=== PATIENT | male | born 1990 | race Caucasian/White ===

== ENCOUNTER 2022-01-21 19:18 | Emergency (ER) | payer OTHER, SELFPAY ==
[2022-01-21 19:31] VITALS: BP 151/98; PULSE 60; RESP 16; TEMP 37; O2SAT 100; BMI 30.7
--- NOTE | 2022-01-21 19:39 | DI.RAD.S_ITS ---
PROCEDURE: XR CHEST 1V INDICATIONS: chest pain TECHNIQUE: One view of the chest was acquired. COMPARISON: None. FINDINGS: Surgical changes and devices: None. Lungs and pleura: Lungs are clear. No pleural effusions or pneumothorax. Mediastinum: Mediastinal contours appear normal. Heart size is normal. Bones and chest wall: No suspicious bony lesions. Overlying soft tissues appear unremarkable. IMPRESSION: 1. No acute cardiopulmonary disease. Dictated by: Gerardo Aleman M.D. on 01/21/2022 at 21:38 Approved by: Gerardo Aleman M.D. on 01/21/2022 at 21:39
--- NOTE | 2022-01-21 20:20 | PC.NURSE ---
Report received - assumed care of pt at this time
[2022-01-21 20:24] LABS: Alanine Aminotransferase 29 IU/L (<50); Albumin 4.7 g/dL (3.5-5.0); Albumin Globulin Ratio 1.5 (1.0-2.8); Alkaline Phosphatase 70 U/L (38-126); Aspartate Aminotransferase 28 IU/L (17-59); BUN Creatinine Ratio 7.4 (6-22); Bilirubin Total 0.8 mg/dL (0.2-1.3); Blood Urea Nitrogen 9 mg/dL (9-20); Calcium 9.3 mg/dL (8.4-10.2); Carbon Dioxide 28 mmol/L (22-32); Chloride 99 mmol/L (98-107); Creatine Kinase 235 U/L (55-170); Estimated Glomerular Filt Rate > 60 mL/min (>60); Globulin 3.1 g/dL (1.7-4.1); Glucose 108 mg/dL (70-100); HEMOLYSIS < 15 (0-50); Lipase 130 U/L (23-300); Sodium 139 mmol/L (137-145); Total Protein 7.8 g/dL (6.3-8.2)
--- NOTE | 2022-01-21 20:25 | PC.NURSE ---
pt returned to waiting room - care relinquished
[2022-01-21 20:35] LABS: Troponin I < 0.012 ng/mL (0.01-0.034)
[2022-01-21 20:39] LABS: CKMB % Relative Index 0.3 % (1.5-5.0)
[2022-01-21 20:50] LABS: Add Manual Diff / Slide Review NO; Basophils Absolute Auto 100 /uL (0-100); Basophils Percent Auto 1.1 % (0-2); Eosinophils Absolute Auto 200 /uL (0-450); Eosinophils Percent Auto 4.2 % (2-4); Hematocrit 44.5 % (41-53); Hemoglobin 15.4 g/dL (13.5-17.5); Lymphocytes Absolute Auto 2500 /uL (1100-4500); Lymphocytes Percent Auto 43.8 % (25-40); Mean Corpuscular HGB Conc 34.6 % (30-36); Mean Corpuscular Hemoglobin 28.6 PG (26-34); Mean Corpuscular Volume 82.8 fL (80-100); Monocytes Absolute Auto 500 /uL (0-900); Monocytes Percent Auto 8.7 % (3-14); Neutrophils Absolute Auto 2500 /uL (1500-7000); Neutrophils Percent Auto 42.2 % (50-75); Platelet Count 266 X10^3/uL (150-400); Red Blood Cell Count 5.37 X10^6/uL (4.5-5.9); Red Cell Distribution Width 13.7 % (11.6-14.8); White Blood Cell Count 5.8 X10^3/uL (4.5-11.0)
--- NOTE | 2022-01-21 21:08 | ED.NEUROSD ---
HPI - Neuro Symptoms/Deficit General Chief Complaint: Neuro Symptoms/Deficit Stated Complaint: Left arm numb earlier, Numbness in head Time Seen by Provider: 01/21/22 20:52 Source: patient Mode of arrival: Ambulatory History of Present Illness HPI Narrative: Patient is a 31-year-old male with out any pertinent past medical history presenting today with dizziness left arm and face numbness. He said he was sitting at work without any stress it suddenly he felt dizzy with some left arm numbness. It lasted for about a minute he is able to finish his work shift for 4 hours without any recurrence. Full driving home he developed some left-sided facial numbness along with some chest discomfort. was with him did not notice any facial droop or difficulty speaking. He had no recurrence of left arm numbness. He has no family history of CVA or CAD. His symptoms have been completely resolved since he is in the emergency department. On Anticoagulants: No Related Data Allergies Allergy/AdvReac Type Severity Reaction Status Date / Time No Known Drug Allergies Allergy Verified 01/21/22 19:31 Review of Systems Review of Systems Narrative: GENERAL: Denies chills, fatigue, malaise, fever, sweats, travel HEENT: Denies sinus pain, ear pain, sore throat, difficulty swallowing, neck pain RESPIRATORY: Denies dyspnea, cough, wheezing, hemoptysis, sputum. CARDIOVASCULAR: Denies chest pain, palpitations, orthopnea, edema GASTROINTESTINAL: Denies nausea, vomiting, abdominal pain, diarrhea, constipation, melena. : Denies dysuria, frequency, incontinence, hematuria, urinary retention, flank pain. MUSCULOSKELETAL: Denies weakness, joint pain, or bony pain SKIN: No rash, no erythema, no pruritus NEUROLOGIC: See HPI PSYCHIATRIC: No concerning psychosocial issues. 12 point review of systems is negative except for those stated above and HPI Hematologic/Lymphatic On Anticoagulants: No Patient History Social History Smoking Status: Never smoker Smoking Status: Never smoker alcohol intake frequency: holidays/special occasions only Substance Use Type: does not use Exam Initial Vital Signs Initial Vital Signs: Vital Signs Temperature 98.6 F 01/21/22 19:31 Pulse Rate 60 01/21/22 19:31 Respiratory Rate 16 01/21/22 19:31 Blood Pressure 151/98 H 01/21/22 19:31 Pulse Oximetry 100 01/21/22 19:31 Oxygen Delivery Method 01/21/22 19:31 GENERAL: Alert pleasant. Year old male and in no acute distress. HEENT: Head atraumatic,EOMI, pupils reactive, face symmetric, moist mucous membranes CARDIOVASCULAR: Regular rate and rhythm without murmurs, rubs or gallops. RESPIRATORY: Breath sounds equal bilaterally, no wheezes rales or rhonchi. ABDOMEN: Soft, nontender. Normoactive bowel sounds all 4 quadrants. No guarding or rebound. EXTREMITIES: Normal range of motion, no clubbing or edema. Neurovascularly intact NEUROLOGICAL: Alert and oriented x4.Normal gait and speech. Cranial nerves II through XII grossly intact. Good [id number], good [id number], strength equal bilaterally, no dysarthria or aphasia, sensation in tact to soft touch bilaterally, no visual changes, no facial droop SKIN: Warm, dry, no laceration, no petechiae, no rashes or lesions. Scores HEART Score Heart Score history: Slightly Suspicious Heart Score EKG: Normal Heart Score Age: < 45 years old Heart Score risk factors: No known risk factors Heart Score troponin: < or = to normal limit Heart Score Total: 0 NIH Stroke Scale Level of Conciousness: Alert, keenly responsive Ask month/age: Answers both questions correctly. Open/close eyes, close hand: Performs both tasks correctly Best gaze horizontal: Normal Visual tinsley: No visual loss Facial palsy: Normal symetrical movement Left arm drift: No drift for full 10 sec Right arm drift: No drift for full 10 sec Left leg drift: No drift for full 5 sec Right leg drift: No drift for full 5 sec Limb ataxia: Absent Sensory on face/arms/legs: Normal, no sensory loss Best language: No aphasia, normal Dysarthria: Normal Extinction or inattention: No abnormality Total NIH Stroke scale score: 0 Course Orders Ordered: ED Orders 01/21/22 19:39 XR chest 1V Stat EKG-12 Lead Stat 01/21/22 19:55 Complete Blood Count AUTO DIFF Stat Comprehensive Metabolic Panel Stat Lipase Stat Magnesium Stat Troponin & CK Cardiac Panel Stat 01/21/22 22:29 CT head/brain wo con Stat Vital Signs Vital signs: Vital Signs - 8 hr 01/21/22 19:31 01/21/22 23:26 Temperature 98.6 F Pulse Rate 60 55 L Respiratory Rate 16 18 Blood Pressure 151/98 H 135/94 H Pulse Oximetry 100 100 Oxygen Delivery Method Room Air Room Air MDM - Neuro Symptoms/Deficit Lab Data Result diagrams: 01/21/22 19:55 01/21/22 19:55 Labs: Lab Results 01/21/22 01/21/22 Range/Units 19:55 19:55 WBC 5.8 (4.5-11.0) X10^3/uL RBC 5.37 (4.5-5.9) X10^6/uL Hgb 15.4 (13.5-17.5) g/dL Hct 44.5 (41-53) % MCV 82.8 (80-100) fL MCH 28.6 (26-34) PG MCHC 34.6 (30-36) % RDW 13.7 (11.6-14.8) % Plt Count 266 (150-400) X10^3/uL Neut % (Auto) 42.2 L (50-75) % Lymph % (Auto) 43.8 H (25-40) % Brewster % (Auto) 8.7 (3-14) % Eos % (Auto) 4.2 H (2-4) % Baso % (Auto) 1.1 (0-2) % Neut # (Auto) 2500 (9759-0172) /uL Lymph # (Auto) 2500 (9927-6859) /uL Brewster # (Auto) 500 (0-900) /uL Eos # (Auto) 200 (0-450) /uL Baso # (Auto) 100 (0-100) /uL Sodium 139 (137-145) mmol/L Potassium 4.0 (3.4-5.1) mmol/L Chloride 99 (98-107) mmol/L Carbon Dioxide 28 (22-32) mmol/L BUN 9 (9-20) mg/dL Creatinine 1.21 (0.66-1.25) mg/dL Estimated GFR > 60 (>60) mL/min BUN/Creatinine Ratio 7.4 (6-22) Glucose 108 H (70-100) mg/dL Calcium 9.3 (8.4-10.2) mg/dL Magnesium 2.0 (1.6-2.3) mg/dL Total Bilirubin 0.8 (0.2-1.3) mg/dL AST 28 (17-59) IU/L ALT 29 (<50) IU/L Alkaline Phosphatase 70 (38-126) U/L Total Creatine Kinase 235 H (55-170) U/L CK-MB (CK-2) 0.60 (<2.37) ng/mL CK-MB (CK-2) Rel Index 0.3 L (1.5-5.0) % Troponin I < 0.012 (0.01-0.034) ng/mL Total Protein 7.8 (6.3-8.2) g/dL Albumin 4.7 (3.5-5.0) g/dL Globulin 3.1 (1.7-4.1) g/dL Albumin/Globulin Ratio 1.5 (1.0-2.8) Lipase 130 (23-300) U/L Imaging Data Chest x-ray: Radiologist's Impression: Signed Patient: Vazquez Coleman MR#: [id number] : 1990 Acct:[id number] Age/Sex: 31 / M Date of Service: 01/21/22 Loc: ED Accession Number: [id number] ?? Procedure: XR chest 1V Ordering Provider: Pavithra Mayberry D.O. PROCEDURE:? XR CHEST 1V ? INDICATIONS:? chest pain ? TECHNIQUE:? One view of the chest was acquired.? ? COMPARISON:? None. ? FINDINGS:? ? Surgical changes and devices:? None.? ? Lungs and pleura:? Lungs are clear.? No pleural effusions or pneumothorax.? ? Mediastinum:? Mediastinal contours appear normal.? Heart size is normal.? ? Bones and chest wall:? No suspicious bony lesions.? Overlying soft tissues appear unremarkable.? ? IMPRESSION:? ? 1.? No acute cardiopulmonary disease. ? ? ? Dictated by: Gerardo Aleman M.D. on 01/21/2022 at 21:38? CT scan - head: Radiologist's Impression: [place] [id number] CT Scan Report Signed Patient: Vazquez Coleman MR#: [id number] : 1990 Acct:[id number] Age/Sex: 31 / M Date of Service: 01/21/22 Loc: ED Accession Number: [id number] ?? Procedure: CT head/brain wo con Ordering Provider: Pavithra Mayberry D.O. PROCEDURE:? CT HEAD/BRAIN WO CON ? INDICATIONS:? numbness left side now resolved ? TECHNIQUE:? Noncontrast 4.5 mm thick angled axial sections acquired from the foramen magnum to the vertex, with coronal and sagittal reformats.? For radiation dose reduction, the following was used:? automated exposure control, adjustment of mA and/or kV according to patient size.? ? COMPARISON:? None. ? FINDINGS:? Image quality:? Excellent.? ? CSF spaces:? Basal cisterns are patent.? No extra-axial fluid collections.? Ventricles are normal in size and shape.? ? Brain:? No intracranial hemorrhage, mass, or mass effect.? Farfan-white matter interface appears preserved.? ? Skull and face:? Calvarium and visualized facial bones are intact, without suspicious lesions.? ? Sinuses:? Visualized sinuses and mastoids are clear.? ? IMPRESSION:? ? 1. No acute intracranial abnormality. ? ? Dictated by: Gerardo Aleman M.D. on 01/21/2022 at 22:53 ? ? ECG Data Interpretation: Normal sinus rhythm rate 68 HI interval 140 QRS 80 QTC 414 T-wave inversion noted in lead [address] changes MDM Narrative Medical decision making narrative: Patient does have some numbness on his face 1st time it lasted under 10 minutes then had some facial numbness and some chest discomfort but really can not describe it. He denies palpitations heaviness or squeezing. He is mostly concerned thin numbness on his face. All symptoms have completely resolved. Possible is etiologies include CVA, TIA, coronary artery disease at this time blood work head CT and exam are completely reassuring. I encouraged him to return to the ED if his symptoms worsen. Discharge Plan Departure Patient Disposition: Home Clinical Impression: Peripheral neuropathy Instructions: Peripheral Neuropathy Activity Restrictions/Additional Instructions: *You have been diagnosed with peripheral neuropathy he *What to do: At this time head CT and blood work for reassuring. Please monitor for new or worsening symptoms if you should have recurrent symptoms of weakness or chest pain please return to emergency department immediately. You have not had a full workup but at this time further workup can be done as an outpatient. *Continue to take medications as directed *Follow up with your primary care provider in 2-3 days or call [phone] *Return to ER if you should have increasing weakness numbness chest pain palpitation or any new, worsening or concerning symptoms Visit Report Forms: Patient Portal/API
--- NOTE | 2022-01-21 22:29 | DI.CT.S_ITS ---
PROCEDURE: CT HEAD/BRAIN WO CON INDICATIONS: numbness left side now resolved TECHNIQUE: Noncontrast 4.5 mm thick angled axial sections acquired from the foramen magnum to the vertex, with coronal and sagittal reformats. For radiation dose reduction, the following was used: automated exposure control, adjustment of mA and/or kV according to patient size. COMPARISON: None. FINDINGS: Image quality: Excellent. CSF spaces: Basal cisterns are patent. No extra-axial fluid collections. Ventricles are normal in size and shape. Brain: No intracranial hemorrhage, mass, or mass effect. Farfan-white matter interface appears preserved. Skull and face: Calvarium and visualized facial bones are intact, without suspicious lesions. Sinuses: Visualized sinuses and mastoids are clear. IMPRESSION: 1. No acute intracranial abnormality. Dictated by: Gerardo Aleman M.D. on 01/21/2022 at 22:53 Approved by: Gerardo Aleman M.D. on 01/21/2022 at 22:54
[2022-01-21 23:26] VITALS: BP 135/94; PULSE 55; RESP 18; O2SAT 100
== END 2022-01-21 23:26 | disposition home or self-care (01) ==
PROVIDERS: Emergency Provider Emergency Medicine
DX: G62.9 Polyneuropathy, unspecified (principal); R07.9 Chest pain, unspecified
CPT/HCPCS: 36415; 70450; 71045; 80053; 82550; 82553; 83690; 83735; 84484; 85025; 93005; 93010; 99284